=== PATIENT | male | born 1990 | race African-American/Black ===

== ENCOUNTER 2020-07-28 11:00 | Emergency (ER) | payer SELFPAY ==
[~2020-07-28] VITALS: Ht 180.3 cm; Wt 59.0 kg
[2020-07-28 11:27] VITALS: BP 105/71
[2020-07-28] MEDS ORDERED: cefTRIAXone SOD 1,000 MG VL IM ONE (12:15)
== END 2020-07-28 12:41 | disposition home or self-care (01) ==
LOC: ER 11:00
DX: N34.2 Other urethritis (principal); F17.210 Nicotine dependence, cigarettes, uncomplicated; Z20.2 Contact with and (suspected) exposure to infections with a predominantly sexual mode of transmission
CPT/HCPCS: 96372; 99283; J0696